=== PATIENT | female | born 1960 | race Caucasian/White ===

== ENCOUNTER 2016-11-11 12:42 | Emergency (ER) | payer OTHER ==
[~2016-11-11] VITALS: Ht 157.5 cm; Wt 78.0 kg
[2016-11-11 12:45] VITALS: Ht 157.5 cm; Wt 78.0 kg
[2016-11-11] MEDS ORDERED: ONDANSETRON 4 MG INJ IV STA (21:11)
[2016-11-11] MEDS ORDERED: SOD CHLORIDE 0.9% 1,000 ML IV STA (21:11)
[2016-11-11] MEDS ORDERED: HYDROmorphONE 1 MG/ML SYG IV STA (21:11)
[2016-11-11 21:46] LABS: BASOPHILS % 0.4 % (0.0-2.0); EOSINOPHILS # 0.1 10^3/ul (0.0-0.5); EOSINOPHILS % 1.7 % (0.0-7.0); HEMATOCRIT 41.8 % (37.0-47.0); HEMOGLOBIN 14.1 g/dl (12.0-16.0); LYMPHOCYTES # 2.3 10^3/ul (0.8-2.9); LYMPHOCYTES % 28.2 % (15.0-51.0); MEAN CORPUSCULAR HEMOGLOBIN 28.4 pg (29.0-33.0); MEAN CORPUSCULAR HGB CONC 33.7 g/dl (32.0-37.0); MEAN CORPUSCULAR VOLUME 84.1 fl (82.0-101.0); MEAN PLATELET VOLUME 10.7 fl (7.4-10.4); MONOCYTE # 0.5 10^3/ul (0.3-0.9); MONOCYTES % 6.1 % (0.0-11.0); NEUTROPHILS % 63.2 % (39.0-77.0); PLATELET COUNT 226 10^3/UL (140-415); RED BLOOD COUNT 4.97 10^6/ul (4.20-5.40); RED CELL DISTRIBUTION WIDTH 13.2 % (11.5-14.5); WHITE BLOOD COUNT 8.3 10^3/ul (4.8-10.8)
[2016-11-11 21:51] LABS: ADD UMIC YES; UR ASCORBIC ACID NEGATIVE (NEGATIVE); UR BILIRUBIN (Dip) NEGATIVE (NEGATIVE); UR BLOOD (Dip) NEGATIVE (NEGATIVE); UR CLARITY CLEAR (CLEAR); UR COLOR YELLOW (YELLOW); UR GLUCOSE (Dip) NEGATIVE (NEGATIVE); UR KETONES (Dip) NEGATIVE (NEGATIVE); UR LEUKOCYTE ESTERASE (Dip) TRACE Leu/ul (NEGATIVE); UR NITRITE (Dip) NEGATIVE (NEGATIVE); UR RBC 2 /HPF (0-5); UR SPECIFIC GRAVITY (Dip) 1.019 (1.003-1.030); UR SQUAMOUS EPITHELIAL CELL FEW /HPF (FEW); UR TOTAL PROTEIN (Dip) NEGATIVE (NEGATIVE); UR UROBILINOGEN (Dip) NEGATIVE (NEGATIVE)
[2016-11-11 22:07] LABS: ALBUMIN 4.2 g/dl (3.3-4.9); ALBUMIN/GLOBULIN RATIO 1.2; BILIRUBIN,INDIRECT 0.2 mg/dl (0-1.1); BILIRUBIN,TOTAL 0.2 mg/dl (0.2-1.3); CALCIUM 9.5 mg/dl (8.4-10.2); CREATININE 0.64 mg/dl (0.44-1.00); POTASSIUM 4.3 mmol/L (3.5-5.1); TOTAL PROTEIN 7.7 g/dl (6.1-8.1)
[2016-11-11] MEDS ORDERED: LEVO25TA53 PO (22:13)
[2016-11-11] MEDS ORDERED: METF500T4 PO (22:13)
[2016-11-11] MEDS ORDERED: SOD CHLORIDE 0.9% 100 ML ONE (22:27)
[2016-11-11] MEDS ORDERED: IOHEXOL 300MG/ML 150 ML BTL ONE (22:27)
--- NOTE | 2016-11-11 23:04 | RADRPT ---
PROCEDURE: CT ABDOMEN AND PELVIS WITH CONTRAST: CLINICAL INDICATION: 55-year of age, female, diffuse abdominal and back pain greater on the right . COMPARISON: None available. TECHNIQUE: CT of the abdomen and pelvis was performed following administration of 90 mL IV Omnipaqu e-300. Oral contrast was not administered prior to the examination. Coronal and sagittal reformatted images were obtained from the axial source images. Images were revi ewed on a high-resolution PACS workstation. Dose information: Based on a 32 cm phantom, the estimated radiation dose (CTDIvol mGy for each serie s in this exam is 10.6. The estimated cumulative dose (DLP mGy-cm) is 592. One or more of the following dose reduction techniques were used: - Automated exposure control. - Adjustment of the mA and/or kV according to patient size. - Use of iterative reconstruction technique. FINDINGS: LUNG BASES: There are multiple small calcified nodules randomly distributed throughout the lungs angela t may be due to old healed granulomatous infection or remote varicella zoster pneumonia. ABDOMEN/PELVIS: Liver: Mildly hypodense in keeping with mild steatosis. Hepatomegaly measuring 22.1 cm in length. Po rtal veins, splenic vein and SMV are patent. Hepatic veins are patent. Gallbladder: Normal. Bile ducts: No intrahepatic or extrahepatic biliary duct dilatation. Spleen: Normal. Pancreas: Normal. Adrenal glands: Normal. Kidneys and ureters: Cyst superior pole right kidney. Kidneys enhance normally. Negative for urinary calculi or hydronephrosis. Aorta and IVC: Patent. Aorta is normal caliber. Lymph nodes: Normal. Gastrointestinal tract: Normal. Appendix: Normal Bladder: Normal. Pelvic Organs: The uterus and adnexa are unremarkable. There is a benign calcification in the right ovary. Peritoneal cavity: No free fluid or free intraperitoneal air. Abdominal wall: Normal. BONES: Musculoskeletal: No suspicious bone lesions. IMPRESSION: Mild hepatic steatosis and hepatomegaly. This is a potential cause for right upper quadrant pain. Re commend correlation with liver tests to evaluate for potential steatohepatitis. No other cause for abdominal pain is evident. Negative for urinary calculi or hydronephrosis. Normal appendix. RPTAT: HCTS Claudiay Sadro, Physician Date Time Electronically viewed and signed by Moni Gonzales, Physician on 11/11/2016 23:04 CS/
[2016-11-11 23:41] LABS: HAAIG REFLEX REFLEX FILED
[2016-11-12] MEDS ORDERED: ACETAMINOPHEN 325 MG TAB PO ONE
[2016-11-12] MEDS ORDERED: ONDA4TAB14 PO (00:19)
[2016-11-12] MEDS ORDERED: TRAM50TA2 PO (00:19)
--- NOTE | 2016-11-12 00:23 | ERD ---
ER Documentation Chief Complaint Date/Time DATE: 11/12/16 TIME: 00:22 Chief Complaint ap x 2 weeks HPI This is a 55-year-old female comes in with abdominal pain for 2 weeks. Pain is been on and off. No nausea no vomiting no chills. No other current complaints. Pain is become diffuse and colicky and nonlocalizing. No other current issues. ROS All systems reviewed and are negative except as per history of present illness. Medications Home Meds Active Scripts Ondansetron (Ondansetron Odt) 4 Mg Tab.rapdis, 4 MG PO Q6H Y for NAUSEA AND/OR VOMITING, #10 TAB Prov:SANDHYA ARIAS. 11/12/16 Tramadol HCl (Tramadol HCl) 50 Mg Tablet, 50 MG PO Q4 Y for PAIN, #20 TAB Prov:SANDHYA ARIAS S. 11/12/16 Reported Medications Levothyroxine Sodium* (Levothyroxine Sodium*) 25 Mcg Tablet, 25 MCG PO BEFORE BREAKFAST, #30 TAB 11/11/16 Metformin Hcl* (Metformin Hcl*) 500 Mg Tablet, 500 MG PO WITH BREAKFAST, #30 TAB 11/11/16 Allergies Allergies: Coded Allergies: No Known Allergy (Unverified , 11/11/16) PMhx/Soc History of Surgery: Yes (, TUBES TIED) Anesthesia Reaction: No Hx Neurological Disorder: No Hx Respiratory Disorders: No Hx Cardiac Disorders: No Hx Psychiatric Problems: No Hx Miscellaneous Medical Probl: Yes (DM) Hx Alcohol Use: No Hx Substance Use: No Hx Tobacco Use: No Smoking Status: Never smoker Physical Exam Vitals Vital Signs Date Time Temp Pulse Resp B/P Pulse Ox O2 Delivery O2 Flow Rate FiO2 11/11/16 12:45 98.1 87 18 145/81 99 Physical Exam Const: [] Head: Atraumatic Eyes: Normal Conjunctiva ENT: Normal External Ears, Nose and Mouth. Neck: Full range of motion..~ No meningismus. Resp: Clear to auscultation bilaterally Cardio: Regular rate and rhythm, no murmurs Abd: Soft, non tender, non distended. Normal bowel sounds Skin: No petechiae or rashes Back: No midline or flank tenderness Ext: No cyanosis, or edema Neur: Awake and alert Psych: Normal Mood and Affect Result Diagram: 11/11/16212911/11/162129 Results 24 hrs Laboratory Tests Test 11/11/16 21:15 11/11/16 21:30 Urine Color YELLOW Urine Clarity CLEAR Urine pH 6.0 Urine Specific [place] 1.019 Urine Ketones NEGATIVEmg/dL Urine Nitrite NEGATIVEmg/dL Urine Bilirubin NEGATIVEmg/dL Urine Urobilinogen NEGATIVEmg/dL Urine Leukocyte Esterase TRACELeu/ul Urine Microscopic RBC 2/HPF Urine Microscopic WBC 8/HPF Urine Squamous Epithelial Cells FEW/HPF Urine Hemoglobin NEGATIVEmg/dL Urine Glucose NEGATIVEmg/dL Urine Total Protein NEGATIVEmg/dl White Blood Count 8.310^3/ul Red Blood Count 4.9710^6/ul Hemoglobin 14.1g/dl Hematocrit 41.8% Mean Corpuscular Volume 84.1fl Mean Corpuscular Hemoglobin 28.4pg Mean Corpuscular Hemoglobin Concent 33.7g/dl Red Cell Distribution Width 13.2% Platelet Count 09700^3/UL Mean Platelet Volume 10.7fl Neutrophils % 63.2% Lymphocytes % 28.2% Monocytes % 6.1% Eosinophils % 1.7% Basophils % 0.4% Nucleated Red Blood Cells % 0.0/100WBC Neutrophils # (Manual) 5.310^3/ul Lymphocytes # 2.310^3/ul Monocytes # 0.510^3/ul Eosinophils # 0.110^3/ul Basophils # 0.010^3/ul Nucleated Red Blood Cells # 0.010^3/ul Sodium Level 138mmol/L Potassium Level 4.3mmol/L Chloride Level 100mmol/L Carbon Dioxide Level 28mmol/L Anion Gap 14 Blood Urea Nitrogen 18mg/dl Creatinine 0.64mg/dl Glucose Level 222mg/dl Calcium Level 9.5mg/dl Total Bilirubin 0.2mg/dl Direct Bilirubin 0.00mg/dl Indirect Bilirubin 0.2mg/dl Aspartate Amino Transf (AST/SGOT) 71IU/L Alanine Aminotransferase (ALT/SGPT) 127IU/L Alkaline Phosphatase 91IU/L Total Protein 7.7g/dl Albumin 4.2g/dl Globulin 3.50g/dl Albumin/Globulin Ratio 1.20 Lipase 198U/L Hepatitis B Surface Antigen Pending Hepatitis B Core Total Antibody Pending Hepatitis C Antibody Pending Current Medications Medications (Trade) Dose Ordered Sig/Armin Route PRN Reason Start Time Stop Time Status Last Admin Dose Admin Sodium Chloride (NS) 1,000 ml @ 1,000 mls/hr Q1H STAT IV 11/11/16 21:11 11/11/16 22:10 DC 11/11/16 21:28 Hydromorphone HCl (Dilaudid) 1 mg ONCE STAT IV 11/11/16 21:11 11/11/16 21:13 DC 11/11/16 21:28 Ondansetron HCl (Zofran Inj) 4 mg ONCE STAT IV 11/11/16 21:11 11/11/16 21:13 DC 11/11/16 21:28 IV Flush 10 ml 10 ml STK-MED ONCE .ROUTE 11/11/16 22:27 11/11/16 22:28 DC 11/11/16 22:36 Sodium Chloride (NS) 100 ml @ ud STK-MED ONCE .ROUTE 11/11/16 22:27 11/11/16 22:28 DC 11/11/16 22:36 Iohexol (Omnipaque 300mg/ ml) 150 ml STK-MED ONCE .ROUTE 11/11/16 22:27 11/11/16 22:28 DC 11/11/16 22:36 Acetaminophen (Tylenol Tab) 650 mg ONCE ONCE PO 11/12/16 00:00 11/12/16 00:01 DC 11/11/16 23:38 Procedures/MDM Medical decision-making: Patient comes in with undifferentiated abdominal pain. CT does show hepatic steatosis. Hepatitis panel has been sent off but is pending. Patient will follow up with her PCP. PCP does have access developed respiratory records. Patient has been advised to follow-up in 8 hours for serial abdominal exams. Departure Diagnosis: Primary Impression: Abdominal pain Abdominal location: unspecified location Qualified Code: R10.9 - Abdominal pain, unspecified abdominal location Condition: Stable Patient Instructions: Hepatitis, Viral (Type Pending) Referrals: JOSE CHEN MD (PCP) SANDHYA ARIAS Nov 12, 2016 00:23
[2016-11-12 00:40] LABS: HEPATITIS B CORE ANTIBODY REACTIVE (NEGATIVE)
[2016-11-12 01:07] VITALS: BP 138/70; PULSE 77; RESP 18; TEMP 98
== END 2016-11-12 01:08 | disposition home or self-care (01) ==
LOC: E/R 12:42
DX: R10.84 Generalized abdominal pain (principal); E11.9 Type 2 diabetes mellitus without complications; Z79.84 Long term (current) use of oral hypoglycemic drugs
CPT/HCPCS: 36415; 74177; 80053; 81001; 83690; 85025; 86704; 86709; 86803; 87340; 96374; 96375; 99285; J1170; J2405; J7030; Q9967